=== PATIENT | male | born 1990 | race Hispanic/Latino ===

== ENCOUNTER 2016-11-08 08:35 | Emergency (ER) | payer SELFPAY ==
[~2016-11-08] VITALS: Ht 167.6 cm; Wt 63.6 kg
[2016-11-08 08:37] VITALS: BP 129/92; PULSE 104; RESP 18; O2SAT 99
--- NOTE | 2016-11-08 09:03 | ED.REPORT ---
HPI-Back Pain Under 40 Date of Service Nov 08, 2016 ED Provider: Elie Flores MD Mr. Sharif is a 26 y/o man who presents today for lower and mid back pain and it has been intermittent for the past 1-2 months. When he comes home from work and when it is really cold, it hurts worse. When it really hurts, he can barely move. He has tried ibuprofen without relief. No relieving factors. It is an achy pain. No injury or fall. 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 He last weighed 180 lbs 6 months ago. He is not trying to lose weight. No fever, chills, numbness, tingling, or weakness. No bowel or bladder incontinence. He was seen in [place] for the same complaint in September 2016. Nursing Notes Stated Complaint: BACK PAIN Chief Complaint: Back Pain or Injury Nursing Notes Reviewed: Yes Allergies: Coded Allergies: No Known Allergies (Unverified , 11/08/16) Scheduled Meloxicam (Meloxicam) 7.5 Mg Tablet 7.5 MG PO DAILY General Time Seen by MD: 08:54 Chief Complaint Back pain Hx Obtained From: Patient Sudden in Onset?: No Past Medical History Past Medical History denies Past Surgical History denies Smoking History Current Some Day Smoker Social History No history of IV drug use. Alcohol Use: "Social" Drug Use: Denies drug use Review of Systems Basic Review of Systems Skin: No bruising, No rash, No itch Constitutional: Denies: Chills, Fever Respiratory: Denies: Non-productive cough, Shortness of breath Cardiovascular: Denies: Chest pain GI: Denies: Abdominal pain, Diarrhea, Vomiting Male: Denies Dysuria, Denies Hematuria, Denies Penile discharge Musculoskeletal: Denies: Extremity swelling, Joint pain Neurologic: Denies: Headache, Problem walking, Vision change Physical Exam Initial Vital Signs Vital Signs (First) Date Time Temp Pulse Resp B/P Pulse Ox O2 Delivery O2 Flow Rate FiO2 11/08/16 08:37 37.5 104 18 129/92 99 Room Air Initial VS: Reviewed Head / Eyes: Atraumatic, Normocephalic, PERRL ENT: Mucous membranes moist, Conjunctiva normal, No scleral icterus Neck: Supple, Non-tender, Full range of motion Respiratory: Breath sounds normal, Clear to auscultation, No respiratory distress Cardiovascular: Regular rate & rhythm, Intact distal pulses Abdomen / GI: Soft, Non-tender, No guarding, No rebound, No distention Extremities: Vascular intact, Neuro intact, No swelling, No tenderness Skin: Warm, Dry, No cyanosis Psychiatric: Mood/affect normal, Behavior normal, Normal thought content Back: Full range of motion, Non-tender, No midline vertebral tend, No paraspinal tenderness, No muscle spasm, Straight leg raise neg, No CVA tenderness Neurologic: Oriented X3, Speech NL, No motor deficits, No sensory deficits, Reflexes equal bilat Respiratory / Chest: Breath sounds NL, Breath sounds = bilat, No respiratory distress, No rales, No rhonchi, No wheezing Cardiovascular: Heart rate NL, Regular rhythm, Heart sounds NL Heart Sounds / Murmur: Positive: Murmur radiation... (Neck), Murmur shape... ( Crescendo), Murmur timing..., Systolic murmur present.. (II/) Interpretation & Diagnostics Lab Results Interpretation Result Diagram: 11/08/16 1110 11/08/16 1110 Test 11/08/16 10:43 11/08/16 11:10 Urine Color Yellow (YELLOW) Urine Appearance Clear (CLEAR,HAZY) Urine pH 6.0 (5.0-8.0) Urine Specific [place] >1.030 (1.003-1.035) Urine Protein Tracemg/dL (NEG,TRACE) Urine Glucose (UA) Negativemg/dL (NEGATIVE) Urine Ketones Negativemg/dL (NEGATIVE) Urine Occult Blood Small (NEGATIVE) Urine Nitrite Negative (NEGATIVE) Urine Bilirubin Negative (NEGATIVE) Urine Urobilinogen 1.0mg/dL (NORMAL) Urine Leukocyte Esterase Negative (NEGATIVE) Urine RBC 3-10/hpf (0-2) Urine WBC 0-5/hpf (0-5) Urine Epithelial Cells Occasional/hpf (NONE-MOD) Urine Crystals None seen (NONE SEEN) Urine Bacteria Few/hpf (NONE-FEW) Urine Hyaline Casts None/lpf (NONE) Urine Granular Casts None seen (NONE SEEN) Urine Waxy Casts None seen (NONE SEEN) Urine Red Blood Cell Casts None seen (NONE SEEN) Urine White Blood Cell Casts None seen (NONE SEEN) Urine Mucus None seen (None Seen) Urine Trichomonas None seen (NONE SEEN) Urine Yeast None (NONE SEEN) Urinalysis Comment None Urine Culture Reflexed Not indicated White Blood Count 7.0th/mm3 (3.8-10.1) Red Blood Count 5.69mil/mm3 (4.40-5.80) Hemoglobin 15.4g/dL (13.8-17.2) Hematocrit 45.6% (41.0-50.0) Mean Corpuscular Volume 80.1fL (81-100) Mean Corpuscular Hemoglobin 27.1pg (27.0-35.0) Mean Corpuscular Hemoglobin Concent 33.8% (32.0-37.0) Red Cell Distribution Width 12.3% (12.3-15.4) Platelet Count 226bil/L (150-400) Neutrophils (%) (Auto) 59.4% (40-74) Lymphocytes (%) (Auto) 27.6% (14-46) Monocytes (%) (Auto) 9.2% (4-12) Eosinophils (%) (Auto) 3.3% (0-5) Basophils (%) (Auto) 0.4% (0-3) Sodium Level 140mEq/L (134-144) Potassium Level 4.2mEq/L (3.5-5.2) Chloride Level 102mEq/L (97-108) Carbon Dioxide Level 25mmol/L (18-29) Blood Urea Nitrogen 11mg/dL (6-20) Creatinine 0.98mg/dL (0.76-1.27) Estimat Glomerular Filtration Rate 99mL/min (>59) Glucose Level 92mg/dL (60-99) Calcium Level 9.1mg/dL (8.5-10.1) Total Bilirubin 0.3mg/dL (0.0-1.2) Aspartate Amino Transf (AST/SGOT) 18U/L (0-50) Alanine Aminotransferase (ALT/SGPT) 18U/L (0-44) Alkaline Phosphatase 63U/L (25-150) Total Protein 7.8g/dL (6.4-8.4) Albumin 4.4g/dL (3.4-5.0) Re-Eval/Medical Decision Med Decision/Clinical Course 1. low back pain -Most likely, it is musculoskeletal in nature. Patient's pain is worse after working and movement. -Pt is afebrile and does not have point tenderness of his back on exam. -He has symmetric DTRs and normal muscle strength in his lower extremities bilaterally. -Patient had trace protein and a small amount of blood on UA. He does not have dysuria, hematuria, or CVA tenderness on exam. CBC and CMP done today are within normal limits. -Patient denies IV drug use. -Records from [place] requested and reviewed. Patient weighed 72.576 kg on 09/01/2016. X-ray was not concerning and CBC and CMP within normal limits according to records. He was given ibuprofen. 2. weight loss -Patient has lost about 20 pounds since 09/01/2016 when he was seen at [facility]. Re-Evaluation/Progress : Time of Eval: 10:15 Patient Status: Mild relief (of pain after Toradol) DDx includes but not limited to: Musculoskeletal strain, muscle spasm, osteoarthritis, pyelonephritis, nephrolithiasis, Acuna disease, epidural abscess, herniated disc, cauda equina syndrome, ankylosing spondylitis Discharge & Departure Impression: Primary Impression: Low back pain Chronicity: unspecified Back pain laterality: bilateral Sciatica presence: without sciatica Qualified Code: M54.5 - Low back pain Additional Impression: Weight loss Disposition: Home All VS Reviewed: Yes Condition: Stable Patient Instructions: Low Back Strain (ED) Additional Instructions: You likely strained the muscles in your low back from repeated movement. Your blood work was reassuring. You were given a prescription for meloxicam 7.5 mg, take 1 tablet by mouth once daily as needed for pain. It should be taken with a meal. You can call the [facility] to ask for osteopathic manipulative treatment (OMT) for your back pain. Return to the emergency department if he develops fever or chills, cough up blood, notice blood in your urine, develop weakness in your legs, numbness or tingling in your legs, or have an accident of urine or stool. Follow up with a primary care physician within one week to establish care and for further investigation into your recent weight loss and a heart murmur. Referrals: [facility] 1 Week Further evaluation of weight loss, heart murmur, and small amount of blood and urine. Attending Statement The patient was seen and examined together with Dr. Dash on 11/08/16 and I agree with the history, exam and plan as outlined in the note above. copies to: [facility] Zara Dash DO Nov 08, 2016 09:03 Elie Flores MD Nov 08, 2016 13:11
[2016-11-08 10:48] LABS: APPEARANCE,URINE CLEAR (CLEAR,HAZY); COLOR,URINE YELLOW (YELLOW); OCCULT BLOOD,URINE SMALL (NEGATIVE)
[2016-11-08 11:25] LABS: BASOPHILS % (AUTO) 0.4 % (0-3); EOSINOPHILS % (AUTO) 3.3 % (0-5); MONOCYTES % (AUTO) 9.2 % (4-12); Mean Corpuscular Hemoglobin 27.1 pg (27.0-35.0); Mean Corpuscular Volume 80.1 fL (81-100); NEUTROPHILS % (AUTO) 59.4 % (40-74); Platelet Count 226 bil/L (150-400)
[2016-11-08] MEDS ORDERED: MELO-259 PO (12:00)
[2016-11-08 12:13] VITALS: BP 125/88; PULSE 92; RESP 14; O2SAT 99
== END 2016-11-08 12:16 | disposition home or self-care (01) ==
LOC: SED 10:06
DX: M54.5 Low back pain (principal); R63.4 Abnormal weight loss; X50.3XXA Overexertion from repetitive movements, initial encounter; Y92.59 Other trade areas as the place of occurrence of the external cause; Y93.89 Activity, other specified; Y99.0 Civilian activity done for income or pay; F17.200 Nicotine dependence, unspecified, uncomplicated